=== PATIENT | female | born 1975 | race Caucasian/White ===

== ENCOUNTER 2018-09-22 06:25 | Day surgery (SDC) | payer OTHER ==
[2018-09-22] VITALS (15 sets, daily range): BP systolic 103–116; BP diastolic 62–72; PULSE 66–82; RESP 10–28; Ht 154.9 cm; Wt 78.5 kg
[~2018-09-22] VITALS: Ht 154.9 cm; Wt 78.5 kg
--- NOTE | 2018-09-22 06:32 | PREAC ---
Date/Time of Note Date/Time of Note DATE: 09/22/18 TIME: 06:25 Anesthesia Eval and Record Evaluation Time Pre-Procedure Interview DATE: 09/22/18 TIME: 06:25 Age 43 Sex female NPO: 8 hrs Preoperative diagnosis Sterilization Planned procedure Lab Bilateral Tubal Ligation Past Medical History Past Medical History: Includes Cardio: Other Endo: Other Pulm: Other Neuro: Other Musculoskeletal: Other Renal: Other Hepatic: Other GI: Other Heme: Other Psych: Other Infection(s): Other Recreational drugs: Other : Other Surgery & Anesthesia Issues Hx of difficult intubation, Aspiration risk Meds Anticoagulation: No Beta Michael within 24 hr: No Reason Beta Michael not given: Pt. not on B-Michael Meds reviewed: Yes Allergies Allergies Reviewed: Yes Labs/Studies Labs Reviewed: Reviewed by anesthesiologist test: Negative Studies: ECG Pre-procedure Exam Airway: Adequate mouth opening Mallampati: Mallampati I Teeth: Normal Lung: Normal Heart: Normal Anticipated Difficutly with IV: Anticipate Difficult IV Access ASA Physical Status ASA physical status: 1 Emergency: None Planned Anesthetic General/MAC: ETT Neuraxial: Other Nerve block: Other Planned Pain Management Parenteral pain med, Local by surgeon Pre-operative Attestations Prior to commencing anesthesia and surgery, the patient was re-evaluated, there was verification of: *The patient's identity *The results of appropriate recent lab work and preoperative vital signs *The above evaluation not changing prior to induction *Anesthetic plan, risk benefits, alternative and complications discussed with patient/family; questions answered; patient/family understands, accepts and wishes to proceed. CARMEN MCCORMICK MD Sep 22, 2018 06:32
[2018-09-22] MEDS ORDERED: FENTAnyl 50 MCG/ML VIAL ONE (06:33)
[2018-09-22] MEDS ORDERED: LIDOCAINE 2% (SDV) 5 ML INJ ONE (06:33)
[2018-09-22] MEDS ORDERED: MIDAZOLAM 1 MG/ML 2 ML INJ ONE (06:33)
[2018-09-22] MEDS ORDERED: ROCURONIUM 50 MG INJ ONE (06:33)
[2018-09-22] MEDS ORDERED: PROPOFOL 20 ML ONE (06:33)
[2018-09-22] MEDS ORDERED: GLYCOPYRROLATE 0.4 MG INJ ONE (06:33)
[2018-09-22] MEDS ORDERED: NEOSTIGMINE 3 MG/3 ML SYRINGE ONE (06:33)
[2018-09-22] MEDS ORDERED: DEXAMETHASONE 4 MG/ML 5 ML INJ ONE (06:33)
[2018-09-22] MEDS ORDERED: ONDANSETRON 4 MG INJ ONE (06:34)
[2018-09-22] MEDS ORDERED: CEFAZOLIN 1 GM INJ ONE (06:34)
[2018-09-22] MEDS ORDERED: SUCCINYLCHOLINE CHLORIDE 100 MG/5 ML SYG IV ONE (06:34)
[2018-09-22] MEDS ORDERED: BUPIVACAINE 0.5%/EPI (SDV) 30 ML INJ ONE (06:46)
[2018-09-22] MEDS ORDERED: SUGAMMADEX SODIUM 200 MG/2 ML VIAL IV ONE (07:00)
--- NOTE | 2018-09-22 08:40 | OPR ---
Date/Time of Note Date/Time of Note DATE: 09/22/18 TIME: 08:32 Operative Report Procedure Date: Sep 22, 2018 Preoperative Diagnosis Patient desires permanent sterilization. Postoperative Diagnosis Patient desires permanent sterilization. Operation/Procedure Performed Laparoscopic bilateral salpingectomies Surgeon Delvis Mathur MD Licensed Prosthetist none Anesthesia Type: general Estimated Blood Loss: minimal Transfusion none Specimen distal ends of tubes Grafts/Implants none Tubes/Drains none Complications none Pt Condition Post Procedure: stable Disposition: PACU Procedure Description FINDINGS: Normal tubes, ovaries bilaterally. Normal uterus. CONSENT: Please see my preop H and P consent in the office for the consent process. DESCRIPTION OF PROCEDURE: She was taken to operating room and general anesthesia was induced. She was prepped and draped in the usual sterile fashion in dorsal lithotomy position. Surgical time-out was done. Anterior lip of the cervix was grasped using a single-tooth tenaculum, and a HUMI was inserted in normal fashion. The tenaculum was removed. There was no bleeding from the cervix. The patient already had a Menard catheter as well. Gloves were changed. A 5 mm incision was developed inside the umbilicus. A blunt trocar was inserted in the normal fashion. Intraperitoneal position was confirmed using the laparoscope. Pneumoperitoneum was obtained. The patient was placed in Trendelenburg position. A second trocar was inserted under direct visualization of the laparoscope at the pubic hairline in the midline. A 5 cm mid ampullary region of the right tube was coagulated. Complete desiccation of the entire diameter of tube was visualized. I then proceeded to remove the distal end of the tube. I coagulated and cut along the mesosalpinx. The excised distal end of the tube was removed and sent to path. There was no bleeding. Same procedure was done on the contralateral side. All instruments removed under direct visualization of the laparoscope after pneumoperitoneum was released. There was no bleeding. Skin closed using 4-0 Monocryl. Then 10 mL 0.25% Marcaine with epinephrine was injected at the incision sites. HUMI was removed. There was no bleeding from the vagina. Patient tolerated the procedure well. DELVIS MATHUR MD Sep 22, 2018 08:40
[2018-09-22] MEDS ORDERED: ALBUTEROL 0.083% (NEB) 2.5 MG/3 ML AMP HHN PRN (09:00)
[2018-09-22] MEDS ORDERED: FENTAnyl 50 MCG/ML VIAL IV PRN ×3 (09:00)
[2018-09-22] MEDS ORDERED: hydrALAzine 20 MG INJ IV PRN (09:00)
[2018-09-22] MEDS ORDERED: LABETALOL HCL 20MG INJ IV PRN (09:00)
[2018-09-22] MEDS ORDERED: ONDANSETRON 4 MG INJ IV PRN (09:00)
[2018-09-22] MEDS ORDERED: MEPERIDINE 25 MG INJ IV PRN (09:00)
[2018-09-22] MEDS ORDERED: LACTATED RINGER'S 1,000 ML IV* SCH (09:00)
[2018-09-22] MEDS ORDERED: CEFAZOLIN 2 GM/50 ML (PMX) 50 ML IVPB SCH (09:00)
[2018-09-22] MEDS ORDERED: HYDROmorphONE 1 MG/5 ML IV SYRINGE IV PRN ×3 (09:00)
[2018-09-22] MEDS ORDERED: DIPHENHYDRAMINE 50 MG INJ IV PRN (09:00)
[2018-09-22] MEDS ORDERED: OXYCODONE/ACETAMINOPHEN (5/325) TAB PO PRN ×2 (09:00)
--- NOTE | 2018-09-23 19:44 | RADRPT ---
Vent Rate: 69 bpm RR Interval: 0 msec OK Interval: 136 msec QRS Duration: 80 msec QT Interval: 404 msec QTC Interval: 432 msec P-R-T [place]: 18 - 31 - 38 degrees Normal sinus rhythm Normal ECG Electronically Signed By: Nolberto Tyler [id number]
== END 2018-09-22 14:04 | disposition home or self-care (01) ==
LOC: SDS 06:25
PROVIDERS: ATTEND Specialist
DX: Z30.2 Encounter for sterilization (principal)
CPT/HCPCS: 58661; 85025; 85610; 85730; 88302; 93005; J0690; J1100; J1170; J2250; J2405; J2710; J3010; Z7512; Z7610